=== PATIENT | female | born 1950 | race Caucasian/White ===

== ENCOUNTER 2017-05-07 23:40 | Emergency (ER) | payer MEDICARE, MEDICAID ==
[~2017-05-07] VITALS: Ht 165.1 cm; Wt 77.0 kg
[2017-05-08] MEDS ORDERED: SODIUM CHLORIDE 0.9% 1,000ML IVBOLUS ONE (00:30)
[2017-05-08] MEDS ORDERED: SODIUM CHLORIDE FLUSH 10ML SYR IVF ONE (00:30)
[2017-05-08] MEDS ORDERED: HYDROmorphone 1 MG/ML, 1ML IVPush PRN (00:30)
[2017-05-08] MEDS ORDERED: ONDANSETRON 2MG/ML, 2ML IVPush ONE (00:30)
[2017-05-08 00:34] LABS: HEMOGLOBIN 14.8 g/dL (11.7-16.4); WHITE BLOOD COUNT 11.6 x10^3/uL (3.4-10)
[2017-05-08 00:38] LABS: BLOOD UREA NITROGEN 14 mg/dL (7-18)
[2017-05-08] MEDS ORDERED: ONDANSETRON 2MG/ML, 2ML ONE (00:45)
[2017-05-08] MEDS ORDERED: HYDROmorphone 1 MG/ML, 1ML ONE (00:45)
[2017-05-08] MEDS ORDERED: METF500T4 PO (02:27)
[2017-05-08] MEDS ORDERED: ATOR20TA9 PO (02:27)
[2017-05-08] MEDS ORDERED: DULO30CA2 PO (02:27)
[2017-05-08] MEDS ORDERED: OXYC-302 PO (02:27)
[2017-05-08] MEDS ORDERED: LISI-170 PO (02:27)
[2017-05-08] MEDS ORDERED: LEVO75TA5 PO (02:27)
[2017-05-08] MEDS ORDERED: DULO60CA7 PO (02:27)
[2017-05-08 02:46] VITALS: BP 113/59
== END 2017-05-08 02:48 | disposition home or self-care (01) ==
LOC: ED 23:59
DX: S29.012A Strain of muscle and tendon of back wall of thorax, initial encounter (principal); S39.012A Strain of muscle, fascia and tendon of lower back, initial encounter; E11.9 Type 2 diabetes mellitus without complications; I10 Essential (primary) hypertension; K21.9 Gastro-esophageal reflux disease without esophagitis; J44.9 Chronic obstructive pulmonary disease, unspecified; E78.00 Pure hypercholesterolemia, unspecified; R10.9 Unspecified abdominal pain; Z90.49 Acquired absence of other specified parts of digestive tract; X58.XXXA Exposure to other specified factors, initial encounter; Y93.89 Activity, other specified; Y92.89 Other specified places as the place of occurrence of the external cause; Y99.9 Unspecified external cause status
CPT/HCPCS: 36415; 74176; 80048; 81003; 82040; 85025; 96361; 96374; 96375; 99285; J1170; J2405; J7030

== ENCOUNTER 2017-11-10 14:29 | Inpatient (IN) | payer MEDICARE, MEDICAID ==
[~2017-11-10] VITALS: Ht 165.1 cm; Wt 79.9 kg
[~2017-11-10 14:29] MED LIST: ATOR20TA9 PO; DULO30CA2 PO; DULO60CA7 PO; LEVO75TA5 PO; LISI-170 PO; METF500T4 PO; OXYC-302 PO
[2017-11-10] MEDS ORDERED: ALBUTEROL SULFATE 2.5 MG/3 ML NPPB ONE ×2 (15:00→16:00)
[2017-11-10] MEDS ORDERED: ALBUTEROL/IPRATROPIUM 2.5MG/0.5MG, 3 ML ONE ×2 (15:39→20:34)
[2017-11-10] MEDS ORDERED: BUSP5TAB2 PO (16:26)
[2017-11-10] MEDS ORDERED: OXYC-307 PO (16:26)
[2017-11-10] MEDS ORDERED: LISI-170 PO (16:26)
[2017-11-10] MEDS ORDERED: DULO30CA2 PO (16:26)
[2017-11-10] MEDS ORDERED: ACETAMINOPHEN 500 MG TABLET PO ONE (16:30)
[2017-11-10] MEDS ORDERED: SODIUM CHLORIDE FLUSH 10ML SYR IVF ONE (16:30)
[2017-11-10] MEDS ORDERED: SODIUM CHLORIDE 0.9% 1,000ML IVBOLUS ONE (16:30)
[2017-11-10 16:35] LABS: BASOPHILS # (AUTO) 0.08 x10^3/uL (0-0.1); BASOPHILS % (AUTO) 1 % (0-1); EOSINOPHILS # (AUTO) 0.21 x10^3/uL (0-0.4); EOSINOPHILS % (AUTO) 1 % (1-7); LYMPHOCYTES # (AUTO) 3.46 x10^3/uL (1-3.4); LYMPHOCYTES % (AUTO) 21 % (22-44); MD NO; MEAN CORPUSCULAR HEMOGLOBIN 30.2 pg (27.0-34.8); MEAN CORPUSCULAR HGB CONC 33.5 g/dL (32.4-35.8); MEAN CORPUSCULAR VOLUME 90.1 fL (80-100); MEAN PLATELET VOLUME 7.4 fL (7.4-10.4); MONOCYTES # (AUTO) 0.85 x10^3/uL (0.2-0.8); MONOCYTES % (AUTO) 5 % (2-9); NEUTROPHILS # (AUTO) 12.26 x10^3/uL (1.8-6.8); NEUTROPHILS % (AUTO) 73 % (42-75); PLATELET COUNT 262 x10^3/uL (130-400); RED BLOOD COUNT 4.69 x10^6/uL (3.82-5.3); RED CELL DISTRIBUTION WIDTH 13.5 % (9.6-15.2)
[2017-11-10] MEDS ORDERED: ACETAMINOPHEN 500 MG TABLET ONE (16:35)
[2017-11-10] MEDS ORDERED: ATOR20TA9 PO (16:42)
[2017-11-10] MEDS ORDERED: VITAMIN D3 PO (16:42)
[2017-11-10] MEDS ORDERED: CALCIUM PO (16:42)
[2017-11-10] MEDS ORDERED: LEVO25TA2 PO (16:42)
[2017-11-10] MEDS ORDERED: VITAMIN D PO (16:42)
[2017-11-10] MEDS ORDERED: OMEP-110 PO (16:42)
[2017-11-10 16:47] LABS: ALBUMIN 3.2 g/dL (3.4-5.0); ANION GAP 8 mmol/L (5-15); CHLORIDE 105 mmol/L (98-107); CREATININE 0.79 mg/dL (0.55-1.02)
[2017-11-10] MEDS: INSULIN LISPRO 100 UNITS/ML, PEN SQ-INSULIN SCH ×2 (17:00→21:41)
[2017-11-10] MEDS ORDERED: ONDANSETRON 2MG/ML, 2ML IVPush PRN (17:00)
[2017-11-10] MEDS ORDERED: ONDANSETRON ODT 4 MG PO PRN (17:00)
[2017-11-10] MEDS ORDERED: OXYcodone/APAP 10/325MG TABLET PO PRN (17:00)
[2017-11-10] MEDS ORDERED: ACETAMINOPHEN 325 MG TABLET PO PRN (17:00)
[2017-11-10] MEDS ORDERED: LEVO25TA4 PO (17:03)
[2017-11-10] MEDS ORDERED: METF500T4 PO (17:04)
[2017-11-10] MEDS ORDERED: BUSP10TA PO (17:05)
[2017-11-10] MEDS ORDERED: DULO60CA7 PO (17:06)
[2017-11-10] MEDS ORDERED: LISI2.5T PO (17:07)
[2017-11-10] MEDS ORDERED: POTASSIUM CHLORIDE 20 MEQ TAB.ER.PRT PO ONE (17:30)
[2017-11-10] MEDS ORDERED: ENOXAPARIN 40 MG/0.4 ML ONE (18:06)
[2017-11-10] MEDS ORDERED: NICOTINE 14MG/24 HR PATCH.TD24 ONE (18:06)
[2017-11-10] MEDS ORDERED: methylPREDNISolone SOD SUCC 125 MG/2 ML ONE (18:07)
[2017-11-10] MEDS ORDERED: BENZONATATE 100 MG CAPSULE ONE (18:07)
[2017-11-10] MEDS ORDERED: POTASSIUM CHLORIDE 20 MEQ TAB.ER.PRT ONE (18:07)
[2017-11-10] MEDS ORDERED: CEFTRIAXONE PMX 1GM/50ML 50 ML ONE (18:07)
[2017-11-10] MEDS: BENZONATATE 100 MG CAPSULE PO SCH ×2 (18:11→21:42)
[2017-11-10] MEDS: NICOTINE 14MG/24 HR PATCH.TD24 TD SCH (18:12)
[2017-11-10] MEDS: ENOXAPARIN 40 MG/0.4 ML SQ SCH (18:14)
[2017-11-10] MEDS: CEFTRIAXONE PMX 1GM/50ML 50 ML IV SCH (18:15)
[2017-11-10] MEDS: methylPREDNISolone SOD SUCC 125 MG/2 ML IVPush SCH (18:25)
[2017-11-10 19:15] VITALS: BP 123/68
[2017-11-10] MEDS ORDERED: ALBUTEROL SULFATE 2.5 MG/3 ML NPPB PRN (21:00)
[2017-11-10] MEDS: DOXYCYCLINE 100 MG in DEXTROSE 5% 250 ML IV SCH (21:41)
[2017-11-10] MEDS: ATORVASTATIN 20 MG TABLET PO SCH (21:42)
[2017-11-10] MEDS: BUSPIRONE 5 MG TABLET PO SCH (21:42)
[2017-11-10] MEDS: GUAIFENESIN ER 600 MG TABLET PO SCH (21:42)
[2017-11-10] MEDS: DULOXETINE 30 MG CAPSULE.DR PO SCH (21:43)
[2017-11-11 01:38] VITALS: BP 111/67
[2017-11-11] MEDS: methylPREDNISolone SOD SUCC 125 MG/2 ML IVPush SCH ×3 (02:22→18:51)
[2017-11-11 04:36] LABS: MEAN CORPUSCULAR HEMOGLOBIN 29.6 pg (27.0-34.8); MEAN CORPUSCULAR HGB CONC 32.9 g/dL (32.4-35.8); MEAN CORPUSCULAR VOLUME 90.1 fL (80-100); MEAN PLATELET VOLUME 7.6 fL (7.4-10.4); PLATELET COUNT 268 x10^3/uL (130-400); RED BLOOD COUNT 4.48 x10^6/uL (3.82-5.3); RED CELL DISTRIBUTION WIDTH 13.4 % (9.6-15.2)
[2017-11-11 04:47] LABS: CHLORIDE 106 mmol/L (98-107)
[2017-11-11 04:58] LABS: ALANINE AMINOTRANSFERASE 19 U/L (12-78); ALKALINE PHOSPHATASE 110 U/L (45-117); ANION GAP 6 mmol/L (5-15); BILIRUBIN,TOTAL 0.3 mg/dL (0.2-1.0); CALCIUM 9.5 mg/dL (8.5-10.1); CREATININE 0.84 mg/dL (0.55-1.02); TOTAL PROTEIN 7.5 g/dL (6.4-8.2)
[2017-11-11 05:37] LABS: MD YES
[2017-11-11 05:40] LABS: <RBC MORPHOLOGY> NORMAL; BAND#(MANUAL) 1.81 x10^3/uL; BANDS%(MANUAL) 9 % (0-7); LYMPHS% (MANUAL) 3 % (22-44); MONOS% (MANUAL) 2 % (2-9); SEG#(MANUAL) 17.29 x10^3/uL (1.8-6.8); SEGS% (MANUAL) 86 % (42-75)
[2017-11-11 05:41] LABS: <PLATELET ESTIMATE> ADEQUATE; <PLT MORPHOLOGY> NORMAL PLT MORPH
[2017-11-11] MEDS: LEVOTHYROXINE 150 MCG TABLET PO SCH (06:26)
[2017-11-11] MEDS: ALBUTEROL/IPRATROPIUM 2.5MG/0.5MG, 3 ML NPPB SCH ×4 (07:04→18:57)
[2017-11-11 07:23] VITALS: BP 136/62
[2017-11-11 07:42] LABS: HEMOGLOBIN A1C 6.2 % (4.2-6.3)
[2017-11-11] MEDS: INSULIN LISPRO 100 UNITS/ML, PEN SQ-INSULIN SCH ×4 (08:10→21:53)
[2017-11-11] MEDS: CHOLECALCIFEROL 1,000 UNIT TABLET PO SCH (08:10)
[2017-11-11] MEDS: BENZONATATE 100 MG CAPSULE PO SCH ×3 (08:11→21:53)
[2017-11-11] MEDS: BUSPIRONE 5 MG TABLET PO SCH ×2 (08:11→21:53)
[2017-11-11] MEDS: GUAIFENESIN ER 600 MG TABLET PO SCH ×2 (08:11→21:57)
[2017-11-11] MEDS: LISINOPRIL 20 MG TABLET PO SCH (08:11)
[2017-11-11] MEDS: OMEPRAZOLE 20 MG CAPSULE.DR PO SCH (08:11)
[2017-11-11] MEDS: DOXYCYCLINE 100 MG in DEXTROSE 5% 250 ML IV SCH ×2 (11:36→23:49)
[2017-11-11 13:43] VITALS: BP 144/69
[2017-11-11] MEDS: CEFTRIAXONE PMX 1GM/50ML 50 ML IV SCH (18:46)
[2017-11-11] MEDS: NICOTINE 14MG/24 HR PATCH.TD24 TD SCH (18:50)
[2017-11-11 19:38] VITALS: BP 132/64
[2017-11-11] MEDS: ENOXAPARIN 40 MG/0.4 ML SQ SCH (21:52)
[2017-11-11] MEDS: DULOXETINE 30 MG CAPSULE.DR PO SCH (21:53)
[2017-11-11] MEDS: ATORVASTATIN 20 MG TABLET PO SCH (21:56)
[2017-11-12 01:29] VITALS: BP 149/86
[2017-11-12] MEDS: methylPREDNISolone SOD SUCC 125 MG/2 ML IVPush SCH (02:39)
[2017-11-12] MEDS: LEVOTHYROXINE 150 MCG TABLET PO SCH (05:41)
[2017-11-12 06:31] LABS: MEAN CORPUSCULAR HEMOGLOBIN 29.7 pg (27.0-34.8); MEAN CORPUSCULAR HGB CONC 33.1 g/dL (32.4-35.8); MEAN CORPUSCULAR VOLUME 89.7 fL (80-100); MEAN PLATELET VOLUME 7.9 fL (7.4-10.4); PLATELET COUNT 286 x10^3/uL (130-400); RED BLOOD COUNT 4.47 x10^6/uL (3.82-5.3)
[2017-11-12 07:14] LABS: MD YES
[2017-11-12 07:16] LABS: <PLATELET ESTIMATE> ADEQUATE; <PLT MORPHOLOGY> NORMAL PLT MORPH; <RBC MORPHOLOGY> NORMAL; BAND#(MANUAL) 1.18 x10^3/uL; BANDS%(MANUAL) 4 % (0-7); LYMPH#(MANUAL) 1.47 x10^3/uL (1-3.4); LYMPHS% (MANUAL) 5 % (22-44); MONOS#(MANUAL) 1.47 x10^3/uL (0.3-2.7); MONOS% (MANUAL) 5 % (2-9); SEG#(MANUAL) 25.28 x10^3/uL (1.8-6.8); SEGS% (MANUAL) 86 % (42-75)
[2017-11-12 07:30] VITALS: BP 138/72
[2017-11-12] MEDS: ALBUTEROL/IPRATROPIUM 2.5MG/0.5MG, 3 ML NPPB SCH ×4 (07:51→19:33)
[2017-11-12] MEDS: INSULIN LISPRO 100 UNITS/ML, PEN SQ-INSULIN SCH ×4 (08:42→21:28)
[2017-11-12] MEDS: BUSPIRONE 5 MG TABLET PO SCH ×2 (08:43→21:29)
[2017-11-12] MEDS: GUAIFENESIN ER 600 MG TABLET PO SCH ×2 (08:43→21:29)
[2017-11-12] MEDS: LISINOPRIL 20 MG TABLET PO SCH (08:44)
[2017-11-12] MEDS: BENZONATATE 100 MG CAPSULE PO SCH ×3 (08:44→21:28)
[2017-11-12] MEDS: OMEPRAZOLE 20 MG CAPSULE.DR PO SCH (08:44)
[2017-11-12] MEDS: CHOLECALCIFEROL 1,000 UNIT TABLET PO SCH (08:45)
[2017-11-12] MEDS: DOXYCYCLINE 100 MG in DEXTROSE 5% 250 ML IV SCH ×2 (12:26→23:46)
[2017-11-12 12:57] VITALS: BP 144/73
[2017-11-12] MEDS ORDERED: CEFTRIAXONE 1,000 MG in DEXTROSE 5% 50 ML IV SCH (15:00)
[2017-11-12] MEDS: NICOTINE 14MG/24 HR PATCH.TD24 TD SCH (17:13)
[2017-11-12 19:28] VITALS: BP 150/71
[2017-11-12] MEDS: ENOXAPARIN 40 MG/0.4 ML SQ SCH (21:28)
[2017-11-12] MEDS: ATORVASTATIN 20 MG TABLET PO SCH (21:29)
[2017-11-12] MEDS: DULOXETINE 30 MG CAPSULE.DR PO SCH (21:29)
[2017-11-13 00:34] VITALS: BP 148/74
[2017-11-13] MEDS: LEVOTHYROXINE 150 MCG TABLET PO SCH (06:00)
[2017-11-13] MEDS: ALBUTEROL/IPRATROPIUM 2.5MG/0.5MG, 3 ML NPPB SCH ×3 (07:12→14:33)
[2017-11-13] MEDS: INSULIN LISPRO 100 UNITS/ML, PEN SQ-INSULIN SCH ×2 (09:07→11:27)
[2017-11-13] MEDS: LISINOPRIL 20 MG TABLET PO SCH (09:08)
[2017-11-13] MEDS: OMEPRAZOLE 20 MG CAPSULE.DR PO SCH (09:08)
[2017-11-13] MEDS: GUAIFENESIN ER 600 MG TABLET PO SCH (09:08)
[2017-11-13] MEDS: BUSPIRONE 5 MG TABLET PO SCH (09:08)
[2017-11-13] MEDS: BENZONATATE 100 MG CAPSULE PO SCH (09:08)
[2017-11-13] MEDS: CHOLECALCIFEROL 1,000 UNIT TABLET PO SCH (09:09)
[2017-11-13 10:36] LABS: MEAN CORPUSCULAR HEMOGLOBIN 29.6 pg (27.0-34.8); MEAN CORPUSCULAR VOLUME 89.6 fL (80-100); MEAN PLATELET VOLUME 7.6 fL (7.4-10.4); PLATELET COUNT 276 x10^3/uL (130-400); RED BLOOD COUNT 4.38 x10^6/uL (3.82-5.3); RED CELL DISTRIBUTION WIDTH 13.7 % (9.6-15.2)
[2017-11-13 10:54] LABS: BASOPHILS # (AUTO) 0.03 x10^3/uL (0-0.1); BASOPHILS % (AUTO) 0 % (0-1); EOSINOPHILS % (AUTO) 0 % (1-7); LYMPHOCYTES # (AUTO) 2.95 x10^3/uL (1-3.4); LYMPHOCYTES % (AUTO) 14 % (22-44); MD SCAN; MONOCYTES # (AUTO) 0.63 x10^3/uL (0.2-0.8); MONOCYTES % (AUTO) 3 % (2-9); NEUTROPHILS # (AUTO) 17.16 x10^3/uL (1.8-6.8); NEUTROPHILS % (AUTO) 83 % (42-75)
[2017-11-13 11:19] LABS: MICROSCOPIC NOT IND
[2017-11-13 11:20] LABS: CULTURE INDICATED? NO
[2017-11-13] MEDS: DOXYCYCLINE 100 MG in DEXTROSE 5% 250 ML IV SCH (11:27)
[2017-11-13] MEDS ORDERED: LISI2.5T PO (11:35)
[2017-11-13] MEDS ORDERED: NICO-486 TD (11:35)
[2017-11-13] MEDS ORDERED: PRED20TA PO (11:35)
[2017-11-13] MEDS ORDERED: GUAI600T31 PO (11:35)
[2017-11-13] MEDS ORDERED: CEFD300C37 PO (11:43)
[2017-11-13] MEDS ORDERED: DOXY100T PO (11:43)
== END 2017-11-13 15:11 | disposition home or self-care (01) | DRG 193 ==
LOC: ED 16:22 → EDIP 16:23 → ED 16:45 → 3NE 19:24
PROVIDERS: ADMIT Hospitalist; ATTEND Hospitalist
DX: J18.9 Pneumonia, unspecified organism (principal); J96.21 Acute and chronic respiratory failure with hypoxia; Z99.81 Dependence on supplemental oxygen; E44.1 Mild protein-calorie malnutrition; J44.1 Chronic obstructive pulmonary disease with (acute) exacerbation; E11.65 Type 2 diabetes mellitus with hyperglycemia; E11.9 Type 2 diabetes mellitus without complications; Z79.84 Long term (current) use of oral hypoglycemic drugs; E03.9 Hypothyroidism, unspecified; E78.5 Hyperlipidemia, unspecified; F17.210 Nicotine dependence, cigarettes, uncomplicated; F32.9 Major depressive disorder, single episode, unspecified; G89.29 Other chronic pain; I10 Essential (primary) hypertension; J06.9 Acute upper respiratory infection, unspecified; K21.9 Gastro-esophageal reflux disease without esophagitis; T38.0X5A Adverse effect of glucocorticoids and synthetic analogues, initial encounter; Z82.3 Family history of stroke; Z82.49 Family history of ischemic heart disease and other diseases of the circulatory system; Z91.19 Patient's noncompliance with other medical treatment and regimen; Z90.49 Acquired absence of other specified parts of digestive tract; Z88.6 Allergy status to analgesic agent; Z88.8 Allergy status to other drugs, medicaments and biological substances; Z68.29 Body mass index [BMI] 29.0-29.9, adult
CPT/HCPCS: 36415; 71046; 80048; 80053; 81003; 82040; 82962; 83036; 83605; 84145; 85025; 87040; 93005; 94640; 96360; J0696; J1650; J7060; J7613; J7620; J1815; J2930; J7030; J7512